=== PATIENT | female | born 1985 ===

== ENCOUNTER 2017-01-28 17:17 | Emergency (ER) | payer SELFPAY ==
[2017-01-28 17:17] VITALS: BMI 35.3
[2017-01-28 17:23] VITALS: BP 136/79; PULSE 74; RESP 18; TEMP 98.3; O2SAT 97
--- NOTE | 2017-01-28 18:07 | ED PDOC ---
Lower Extremity Pain/Injury Time Seen by Provider: 01/28/17 17:26 Chief Complaint (Nursing): Lower Extremity Problem/Injury Chief Complaint (Provider): Lower extremity problem History Per: Patient History/Exam Limitations: no limitations Onset/Duration Of Symptoms: Days (x2 months) Current Symptoms Are (Timing): Still Present Severity: Mild Pain Scale Rating Of: 8 Additional Complaint(s): Denise Cantu is a 31 year old female, with no past medical history, who presents to the emergency department complaining of right ankle pain onset 2 months ago. She states the pain is worst with ambulation. Patient denies taking any pain medication and spends a lot of time standing up at work. She reports twisting her ankle weeks ago but believes the pain did not originate from it. She denies any trauma, fever or chills. No further medical complaints. PMD: Santy Rabago Past Medical History Reviewed: Historical Data, Nursing Documentation, Vital Signs Vital Signs: Last Vital Signs Temp 98.3 F 01/28/17 17:21 Pulse 74 01/28/17 17:21 Resp 18 01/28/17 17:21 BP 136/79 01/28/17 17:21 Pulse Ox 97 01/28/17 17:21 - Medical History PMH: Denies: Depression - Surgical History Surgical History: - Family History Family History: States: Unknown Family Hx - Social History Current smoker - smoking cessation education provided: No Alcohol: None Drugs: Denies - Home Medications Home Medications: Ambulatory Orders Medication Instructions Recorded Ibuprofen [Motrin] 600 mg PO QID PRN #24 tab 03/30/16 Ibuprofen [Motrin] 600 mg PO Q6 #20 tab 01/28/17 - Allergies Allergies/Adverse Reactions: Allergies Allergy/AdvReac Type Severity Reaction Status Date / Time No Known Allergies Allergy Verified 03/30/16 13:20 Review of Systems ROS Statement: Except As Marked, All Systems Reviewed And Found Negative Constitutional: Negative for: Fever, Chills, Other (trauma) Musculoskeletal: Positive for: Foot Pain (right ankle ) Physical Exam - Reviewed Nursing Documentation Reviewed: Yes Vital Signs Reviewed: Yes - Physical Exam Appears: Positive for: Well, Non-toxic, No Acute Distress Head Exam: Positive for: ATRAUMATIC, NORMAL INSPECTION, NORMOCEPHALIC Skin: Positive for: Normal Color, Warm, Dry Eye Exam: Positive for: EOMI, Normal appearance, PERRL Neck: Positive for: Normal, Painless ROM, Supple Extremity: Positive for: Tenderness (to right ankle. Pain increased with inversion). Negative for: Pedal Edema, Other (no ecchymosis below lateral malleolus) Neurologic/Psych: Positive for: Alert, Oriented - ECG O2 Sat by Pulse Oximetry: 97 (RA) Pulse Ox Interpretation: Normal Medical Decision Making Medical Decision Making: Initial Impression: Right ankle pain Initial Plan: --Motrin Tab 600 mg PO --Ankle Right 3 views [RAD] --reevaluation XR: NAD, as read by [facility] therapy and Podiatry follow up advised ~ Scribe Attestation: Documented by Valeriy Corado, acting as a scribe for Laly Gracia PA-C. Provider Scribe Attestation: All medical record entries made by the Scribe were at my direction and personally dictated by me. I have reviewed the chart and agree that the record accurately reflects my personal performance of the history, physical exam, medical decision making, and the department course for this patient. I have also personally directed, reviewed, and agree with the discharge instructions and disposition. Disposition - Clinical Impression Clinical Impression: Ankle pain - Patient ED Disposition Is Patient to be Admitted: No - Disposition Referrals: Podiatry Clinic [Outside] Disposition: Routine/Home Disposition Time: 19:23 Condition: STABLE Prescriptions: Ibuprofen [Motrin] 600 mg PO Q6 #20 tab Instructions: Arthralgia (ED), RICE Therapy (ED) Forms: [employer] (Lebanese)
--- NOTE | 2017-01-29 07:58 | RAD ---
PROCEDURE: Right Ankle Radiographs. HISTORY: pain COMPARISON: None FINDINGS: BONES: Normal. No fracture. JOINTS: Normal. No osteoarthritis. Ankle mortise maintained. Talar dome intact SOFT TISSUES: Normal. OTHER FINDINGS: None. IMPRESSION: Normal right ankle radiographs.
== END 2017-01-28 19:40 | disposition home or self-care (01) ==
LOC: H.ER 17:17
DX: M25.571 Pain in right ankle and joints of right foot (principal)